=== PATIENT | female | born 1950 | race Caucasian/White ===

== ENCOUNTER 2017-06-16 13:27 | Outpatient (CLI) | payer MEDICARE, OTHER | END 2017-06-16 13:28 | disposition home or self-care (01) | LOC: BICMAMMO 13:27 | PROVIDERS: ATTEND Family Medicine | DX: Z12.31 Encounter for screening mammogram for malignant neoplasm of breast (principal) | CPT/HCPCS: 77063; 77067 ==

== ENCOUNTER 2018-06-24 13:19 | Outpatient (CLI) | payer MEDICARE, OTHER ==
--- NOTE | 2018-06-25 09:07 | MMO ---
BILATERAL SCREENING MAMMOGRAM: Date: 06/24/18 HISTORY: Screening. COMPARISON: Mammograms from 2016, 2015, and 2013. TECHNIQUE: Bilateral screening CC and MLO mammograms. This patient's mammogram was interpreted with the assistance of computer-aided detection. FINDINGS: The breasts are heterogeneously dense, which may obscure small masses. There are benign-appearing dusty cifications within both breasts. No suspicious mass, architectural distortion, or microcalcifications. IMPRESSION: BIRADS 2: Benign Finding(s) Continued screening is recommended. POS: [facility]
== END 2018-06-24 13:20 | disposition home or self-care (01) ==
LOC: SCSMAMMO 13:19
PROVIDERS: ATTEND Family Medicine
DX: Z12.31 Encounter for screening mammogram for malignant neoplasm of breast (principal)
CPT/HCPCS: 77067

== ENCOUNTER 2019-08-23 12:37 | Outpatient (CLI) | payer MEDICARE, OTHER ==
--- NOTE | 2019-08-23 13:43 | RAD ---
RIGHT HIP TWO VIEWS: History: Hip pain. FINDINGS: The changes in the right hip are somewhat less severe than left, but still very pronounced. Severe joslyn int space narrowing, particularly superiorly. Again, some developing deformity to the femoral head. P rominent spur formation along the femoral head and neck junction and evidence for some developing ost eonecrosis with subchondral cystic change of the femoral head and some changes to the acetabulum. IMPRESSION: Severe osteoarthritic changes of the hip. POS: [facility]
--- NOTE | 2019-08-23 13:44 | RAD ---
LEFT HIP TWO VIEWS: History: Left hip pain, decreased range of motion. FINDINGS: There is severe arthritic changes of the hip. There is prominent osteophytic change along the femoral head and neck junction with severe joint space narrowing, subchondral cystic change and some slight flattening to the femoral head suggest underlying osteonecrosis, probably secondary to the advanced o steoarthritic change. IMPRESSION: Severe osteoarthritic change to the hip. POS: [facility]
== END 2019-08-23 12:38 | disposition home or self-care (01) ==
LOC: SCSRAD 12:37
PROVIDERS: ATTEND Family Medicine
DX: M25.551 Pain in right hip (principal); M25.552 Pain in left hip; M16.0 Bilateral primary osteoarthritis of hip

== ENCOUNTER 2020-03-06 14:40 | Outpatient (CLI) | payer MEDICARE, OTHER ==
--- NOTE | 2020-03-06 15:28 | RAD ---
RIGHT TOES 3 VIEWS: Date: 03/06/2020 HISTORY: Right great toe pain. FINDINGS: Very severe osteoarthrosis changes noted of the first metatarsophalangeal joint with marked narrowing , sclerosis, and hypertrophic osteophytosis. No other acute fracture or dislocation. 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 POS: [facility]
== END 2020-03-06 14:41 | disposition home or self-care (01) ==
LOC: BICRAD 14:40
PROVIDERS: ATTEND Family Medicine
DX: M79.674 Pain in right toe(s) (principal); M19.071 Primary osteoarthritis, right ankle and foot

== ENCOUNTER 2022-01-08 12:41 | Outpatient (CLI) | payer MEDICARE | END 2022-01-08 12:42 | disposition home or self-care (01) | LOC: SCSRAD 12:41 | PROVIDERS: ATTEND Family Medicine | DX: M79.672 Pain in left foot (principal) ==